=== PATIENT | male | born 1965 | race Caucasian/White ===

== ENCOUNTER 2019-08-22 03:33 | Emergency (ER) | payer SELFPAY ==
[2019-08-22] MEDS ORDERED: KETOROLAC TROMETHAMINE INJ/PF 30 MG/1 ML SDV IV ONE (03:54)
[2019-08-22] MEDS ORDERED: NORMAL SALINE 1000 ML 1,000 ML IV ONE ×2 (03:54→05:36)
[2019-08-22] MEDS ORDERED: ONDANSETRON HCL INJ/PF 4 MG/2 ML SDV IV ONE (03:54)
--- NOTE | 2019-08-22 03:56 | ER Document Report ---
ED GI/ - General Chief Complaint: Lower Abdominal Pain Stated Complaint: LOWER ABDOMINAL PAIN,BACK PAIN Time Seen by Provider: 08/22/19 03:50 Notes: Patient is a 54-year-old male that comes emergency department for chief complaint of sharp sudden onset pain in his left lower abdomen radiating around to his left flank. He states symptoms started suddenly about 2 hours ago. He vomited twice. He states it was difficult to urinate after symptoms started. He denies fever, history of kidney stones, injury, abdominal surgeries. He reports his only medical history is GERD, gout, and an HI. He drove to the emergency department. - Related Data Allergies/Adverse Reactions: Penicillins Allergy (Verified 08/22/19 04:06) Home Medications: allupurinol, omeprazole, zoloft, metformin Past Medical History - General Information source: Patient - Social History Smoking Status: Never Smoker Frequency of alcohol use: None Drug Abuse: None Lives with: Family Family History: Reviewed & Not Pertinent Patient has suicidal ideation: No Patient has homicidal ideation: No - Past Medical History Cardiac Medical History: Reports: Hx Heart Attack Renal/ Medical History: Reports: Hx Kidney Stones GI Medical History: Reports: Hx Gastroesophageal Reflux Disease - Immunizations Immunizations up to date: Yes Hx Diphtheria, Pertussis, Tetanus Vaccination: Yes Review of Systems - Review of Systems Constitutional: No symptoms reported EENT: No symptoms reported Cardiovascular: No symptoms reported Respiratory: No symptoms reported Gastrointestinal: See HPI Genitourinary: See HPI Male Genitourinary: No symptoms reported Musculoskeletal: No symptoms reported Skin: No symptoms reported Hematologic/Lymphatic: No symptoms reported Neurological/Psychological: No symptoms reported Physical Exam - Vital signs Vitals: Temp Pulse Resp BP Pulse Ox 97.5 F 70 24 H 168/95 H 99 08/22/19 03:42 08/22/19 03:42 08/22/19 03:42 08/22/19 03:42 08/22/19 03:42 - Notes Notes: GENERAL: Patient appears very uncomfortable, has difficulty holding still, moderate distress HEAD: Normocephalic, atraumatic. EYES: Pupils equal, round, and reactive to light. Extraocular movements intact. ENT: Oral mucosa dry, tongue midline. Oropharynx unremarkable. Airway patent. LUNGS: Clear to auscultation bilaterally, no wheezes, rales, or rhonchi. No respiratory distress. HEART: Regular rate and rhythm. No murmur ABDOMEN: Tender in the left mid to lower abdomen, remaining abdomen soft and benign. No guarding or rigidity. GENITOURINARY: No swelling or tenderness, no concerning findings noted, exam performed with Hallie HEAD at bedside. EXTREMITIES: Moves all 4 extremities spontaneously. No edema, normal radial and dorsalis pedis pulses bilaterally. No cyanosis. BACK: no cervical, thoracic, lumbar midline tenderness. No saddle anesthesia, normal distal neurovascular exam. Moves all extremities in full range of motion. NEUROLOGICAL: Alert and oriented x3. Normal speech. Cranial nerves II through XII grossly intact. PSYCH: Agitated SKIN: Warm, dry, normal turgor. No rashes or lesions noted. Course - Re-evaluation Re-evalutation: Patient initially agitated and appears to be in pain, after Toradol, Zofran, IV fluids symptoms resolved. Patient requesting no narcotics. On reevaluation patient is symptom-free. CBC unremarkable, chemistry unremarkable except for borderline renal functioning. Urinalysis showing some blood and elevated specific gravity. CT was performed because patient does not have a history of stones, this does show what appears to me to be a kidney stone in the bladder although the radiology read is that it is still in the UVJ on the left. There is a small stone in the kidney as well. Discussed findings of CAT scan with patient, discussed chemistry and needed repeat of patient's creatinine, discussed care of stone, close follow-up with urology, and return precautions in detail. Patient states appreciation and agreement. Stable and well-appearing at time of discharge. - Vital Signs Vital signs: Temp Pulse Resp BP Pulse Ox 98 F 89 18 149/86 H 96 08/22/19 07:23 08/22/19 07:23 08/22/19 07:23 08/22/19 07:23 08/22/19 07:23 - Laboratory Result Diagrams: 08/22/19 03:58 08/22/19 03:58 Laboratory results interpreted by me: 08/22/19 08/22/19 08/22/19 03:58 03:58 06:20 RBC 6.43 H MCV 66 L MCH 21.4 L RDW 20.2 H BUN 23 H Creatinine 1.50 H Est GFR ( Amer) 59 L Est GFR (MDRD) Non-Af 49 L Glucose 174 H Total Protein 8.3 H Urine Protein 30 H Urine Ketones TRACE H Urine Blood SMALL H Discharge - Discharge Clinical Impression: Flank pain, Ureterolithiasis Abdominal pain Qualifiers: Abdominal location: lower abdomen, unspecified Qualified Code(s): R10.30 - Lower abdominal pain, unspecified Vomiting Qualifiers: Vomiting type: unspecified Vomiting Intractability: non-intractable Nausea presence: with nausea Qualified Code(s): R11.2 - Nausea with vomiting, unspecified Condition: Stable Disposition: HOME, SELF-CARE Additional Instructions: You are passing a 3 mm stone on the left side, this is very near the bladder and should pass. Take the pain medication if needed, take the nausea medication as prescribed. Your creatinine (kidney functioning) is slightly elevated at 1.5 today, please follow-up with primary care for a recheck. Follow-up with urology referral listed below. Return if you worsen including severe worsening pain, uncontrolled vomiting, developing fever, or any other concerning symptoms. [facility] [address] [place], [place] [id number] [facility] [address] [place], [place] [id number] Prescriptions: Oxycodone HCl/Acetaminophen [Percocet 5-325 mg Tablet] 1 - 2 tab PO TID PRN #15 tablet PRN Reason: Ondansetron [Zofran Odt 4 mg Tablet] 1 - 2 tab PO Q4H PRN #15 tab.rapdis PRN Reason: For Nausea/Vomiting Forms: Return to Work
[2019-08-22 04:18] LABS: ABSOLUTE EOSINOPHILS # (AUTO) 0.1 10^3/uL (0.0-0.6); ABSOLUTE LYMPHOCYTES (AUTO) 3.5 10^3/uL (0.5-4.7); ABSOLUTE MONOCYTES (AUTO) 0.5 10^3/uL (0.1-1.4); ABSOLUTE NEUT (AUTO) 5.9 10^3/uL (1.7-8.2); BASOPHILS % (AUTO) 0.3 % (0-2); EOSINOPHILS % (AUTO) 1.5 % (0-6); HEMATOCRIT 42.2 % (37.9-51.0); HEMOGLOBIN 13.8 g/dL (13.5-17.0); LYMPHOCYTES % (AUTO) 34.4 % (13-45); MEAN CORPUSCULAR HEMOGLOBIN 21.4 pg (27.0-33.4); MEAN CORPUSCULAR HGB CONC 32.6 g/dL (32.0-36.0); MEAN CORPUSCULAR VOLUME 66 fl (80-97); MONOCYTES % (AUTO) 5.1 % (3-13); PLATELET COUNT 227 10^3/uL (150-450); RED BLOOD COUNT 6.43 10^6/uL (4.35-5.55); RED CELL DISTRIBUTION WIDTH 20.2 % (11.5-14.0); SEGMENTED NEUTROPHILS % (AUTO) 58.7 % (42-78); TOTAL CELLS COUNTED % (AUTO) 100 %; WHITE BLOOD COUNT 10.1 10^3/uL (4.0-10.5)
[2019-08-22 04:37] LABS: ALBUMIN 4.8 g/dL (3.5-5.0); ALKALINE PHOSPHATASE 77 U/L (38-126); ANION GAP 10 (5-19); ASPARTATE AMINO TRANSFERASE 45 U/L (17-59); BILIRUBIN,DIRECT 0.3 mg/dL (0.0-0.4); BILIRUBIN,TOTAL 0.4 mg/dL (0.2-1.3); BLOOD UREA NITROGEN 23 mg/dL (7-20); CALCIUM 10.1 mg/dL (8.4-10.2); CARBON DIOXIDE 28 mmol/L (22-30); CHLORIDE 99 mmol/L (98-107); GLUCOSE 174 mg/dL (75-110); POTASSIUM 4.6 mmol/L (3.6-5.0); TOTAL PROTEIN 8.3 g/dL (6.3-8.2)
--- NOTE | 2019-08-22 05:29 | RADIOLOGY REPORT (SQ) ---
CT abdomen and pelvis without contrast on 08/22/2019 at 4:54 AM CLINICAL INDICATION: Left-sided back pain, vomiting TECHNIQUE: Multiple axial images are obtained throughout the abdomen and pelvis without the administration of contrast. This exam was performed according to our departmental dose-optimization program, which includes automated exposure control, adjustment of the mA and/or kV according to patient size and/or use of iterative reconstruction technique. Total DLP is 1079.89 mGy*cm. COMPARISON: None FINDINGS: Abdomen: The lung bases are clear. There is mild fatty infiltration of the liver. There is mild left hydronephrosis and hydroureter to the level of a 3 mm left UVJ stone that has nearly passed into the bladder. There are no other ureteral stones. There are small nonobstructing bilateral renal stones. There is mild left perinephric stranding related to the obstruction. The unenhanced solid abdominal organs are otherwise unremarkable. There is no abdominal adenopathy. There is no free fluid or free air within the abdomen or the abdominal portion of the GI tract is unremarkable. Pelvis: No free fluid is noted in the pelvis. There is no pelvic adenopathy. Pelvic portion of the GI tract is unremarkable. Degenerative changes are noted in the spine. Bilateral pars defects are noted at L5 with grade 2 spondylolisthesis at L5-S1. IMPRESSION: 1. Mild left hydronephrosis and hydroureter to the level of a 3 mm left UVJ stone. 2. Bilateral nephrolithiasis.
[2019-08-22 06:33] LABS: APPEARANCE,URINE SLIGHTLY-CLOUDY; BILIRUBIN,URINE NEGATIVE (NEGATIVE); COLOR,URINE YELLOW; GLUCOSE, URINE NEGATIVE (NEGATIVE); KETONES,URINE TRACE mg/dL (NEGATIVE); LEUKOCYTE ESTERASE,URINE NEGATIVE (NEGATIVE); NITRITE,URINE NEGATIVE (NEGATIVE); PROTEIN,URINE 30 mg/dL (NEGATIVE); URINE SPECIFIC GRAVITY 1.027; UROBILINOGEN,URINE NEGATIVE mg/dL (<2.0)
[2019-08-22] MEDS ORDERED: ONDANSETRON ODT 4 MG TAB (6 TAB/ER DISP) PO PRN (06:40)
[2019-08-22] MEDS ORDERED: HYDROCODONE/ACETAMINOPHEN 5-325 MG (6 TAB/ER DISP) PO PRN (06:40)
[2019-08-22 07:25] VITALS: BP 149/86
== END 2019-08-22 07:23 | disposition home or self-care (01) ==
LOC: ER 03:33
DX: N13.2 Hydronephrosis with renal and ureteral calculous obstruction (principal); K21.9 Gastro-esophageal reflux disease without esophagitis; R11.2 Nausea with vomiting, unspecified; I25.2 Old myocardial infarction; Z79.899 Other long term (current) drug therapy; Z79.84 Long term (current) use of oral hypoglycemic drugs; Z88.0 Allergy status to penicillin
CPT/HCPCS: 99284; 96361; 96374; 96375; 36415; 85025; 80053; 81001; 74176; J1885; J2405; J7030